=== PATIENT | female | born 1990 | race Caucasian/White ===

== ENCOUNTER 2020-06-30 14:30 | Emergency (ER) | payer OTHER ==
[2020-06-30 14:55] VITALS: TEMP 98.6; BMI 25.0
[2020-06-30] MEDS ORDERED: SODIUM CHLORIDE 1,000 ML IV STA (15:08)
[2020-06-30 15:42] LABS: BASO % 0.9 % (0-2.0); EOS % 0.9 % (0-4.5); HEMATOCRIT 41.9 % (32.4-45.2); HEMOGLOBIN 14.4 GM/dL (10.7-15.3); LYMPH % 39.8 % (8-40); MCH 33.9 pg (25.7-33.7); MCHC 34.4 g/dl (32.0-36.0); MEAN CELL VOLUME 98.5 fl (80-96); MONO % 4.2 % (3.8-10.2); NEUT % 54.2 % (42.8-82.8); PLATELET COUNT 205 K/MM3 (134-434); RBC 4.25 M/mm3 (3.60-5.2); RDW 12.9 % (11.6-15.6); WHITE BLOOD COUNT 6.3 K/mm3 (4.0-10.0)
[2020-06-30 16:41] LABS: CHLORIDE 106 mmol/L (98-107); POTASSIUM 3.9 mmol/L (3.5-5.1); SODIUM 139 mmol/L (136-145)
[2020-06-30 16:44] LABS: CALCIUM 9.2 mg/dL (8.5-10.1)
[2020-06-30 16:45] LABS: ALBUMIN 4.1 g/dl (3.4-5.0); ANION GAP 5 MMOL/L (8-16); BLOOD UREA NITROGEN 9.3 mg/dL (7-18); CO2 28 mmol/L (21-32); GLUCOSE,RANDOM 76 mg/dL (74-106); MAGNESIUM 2.2 mg/dL (1.8-2.4)
[2020-06-30 16:48] LABS: CREATININE 0.6 mg/dL (0.55-1.3); SGOT/AST 16 U/L (15-37); SGPT/ALT 24 U/L (13-61)
[2020-06-30 16:51] LABS: ALK PHOS 99 U/L (45-117); BILIRUBIN,TOTAL 0.4 mg/dL (0.2-1)
[2020-06-30 19:41] VITALS: BP 110/65; PULSE 78
== END 2020-06-30 18:30 | disposition home or self-care (01) ==
LOC: JER 14:30
PROC: 3E0337Z Introduction of Electrolytic and Water Balance Substance into Peripheral Vein, Percutaneous Approach (ICD-10-PCS; principal; 2020-06-30)
DX: R42 Dizziness and giddiness (principal)
CPT/HCPCS: 36415; 80053; 82550; 83735; 84443; 84484; 84703; 85025; 93005; 93010; 99284-25; C9803; U0003

== ENCOUNTER 2020-07-24 13:21 | Emergency (ER) | payer OTHER | END 2020-07-24 13:37 | disposition home or self-care (01) | LOC: JVIRT 13:21 | DX: Z11.52 Encounter for screening for COVID-19 (principal) | CPT/HCPCS: C9803; G2251-GT; Q3014-GT; U0003 ==

== ENCOUNTER 2023-01-10 17:18 | Emergency (ER) | payer SELFPAY ==
[2023-01-10 17:28] VITALS: BMI 22.8
[2023-01-10] MEDS ORDERED: DEXAMETHASONE SOD PHOSPHATE 20 MG/5 ML VIAL IVPB ONE (17:30)
[2023-01-10] MEDS ORDERED: methylPREDNISolone NA SUCC 125 MG/2 ML VIAL IVPB ONE (17:32)
[2023-01-10] MEDS ORDERED: EPINEPHrine 1:1,000 0.3 MG/0.3 ML SYR IM ONE (17:32)
[2023-01-10] MEDS ORDERED: EPINEPHrine/PF 1 MG/1 ML (1:1,000) AMPULE ONE (17:32)
[2023-01-10] MEDS ORDERED: methylPREDNISolone NA SUCC 125 MG/2 ML VIAL ONE (17:33)
[2023-01-10] MEDS ORDERED: FAMOTIDINE 20 MG/50 ML IVPB 0 MG/0 ML MG IVPB ONE (17:33)
[2023-01-10 21:10] VITALS: BP 104/72; PULSE 105; RESP 22; TEMP 99.1
== END 2023-01-10 21:31 | disposition home or self-care (01) ==
LOC: JER 17:18
PROC: 3E033GC Introduction of Other Therapeutic Substance into Peripheral Vein, Percutaneous Approach (ICD-10-PCS; principal; 2023-01-10)
PROC: 3E033GC Introduction of Other Therapeutic Substance into Peripheral Vein, Percutaneous Approach (ICD-10-PCS; 2023-01-10)
PROC: 3E023GC Introduction of Other Therapeutic Substance into Muscle, Percutaneous Approach (ICD-10-PCS; 2023-01-10)
DX: T63.441A Toxic effect of venom of bees, accidental (unintentional), initial encounter (principal); L50.9 Urticaria, unspecified; R06.02 Shortness of breath; R07.0 Pain in throat; R13.10 Dysphagia, unspecified
CPT/HCPCS: 99284-25; J0171